=== PATIENT | female | born 2000 | race Caucasian/White ===

== ENCOUNTER → 2020-05-05 | Outpatient (CLI) | payer BC, OTHER ==
[~2020-05-05] VITALS: Ht 170.2 cm; Wt 81.8 kg
[~2020-05-05] MED LIST: GADOBUTROL 7.5 MMOL/7.5 ML (GADAVIST) VIAL IV ONE; IOHEXOL 300 MG/ML 50 ML (OMNIPAQUE 300) VIAL IV ONE
--- NOTE | 2020-05-05 14:54 | Diagnostic Imaging Report ---
INDICATION: Right shoulder pain. DETAILS OF PROCEDURE: Patient was brought to the procedure room and placed on table in the supine position. The skin of the right shoulder was prepped and draped in the usual sterile fashion. A small amount of 1% lidocaine was utilized for local anesthesia. 20-gauge needle was advanced to the right shoulder at rotator interval. 50 mL solution of iodinated contrast, normal saline and gadolinium was injected under fluoroscopic observation. Needle was withdrawn and hemostasis was obtained. Patient tolerated the procedure well and was sent to MRI in satisfactory condition. 16 seconds of fluoroscopic time was utilized. IMPRESSION: Successful right shoulder injection of gadolinium contrast solution, using fluoroscopy. Dictated by: Dictated on workstation # [id number]
--- NOTE | 2020-05-05 16:43 | Diagnostic Imaging Report ---
EXAMINATION: Magnetic resonance imaging of the right shoulder with intra-articular contrast. DATE: May 05, 2020. COMPARISON: Right shoulder arthrogram May 05, 2020. MRI right shoulder arthrogram January 27, 2016. HISTORY: 20-year-old female, evaluation for superior labral tear. Right shoulder pain. TECHNIQUE: Magnetic Resonance Imaging sequences were performed of the shoulder following the intra-articular administration of contrast. FINDINGS: ROTATOR CUFF, LIGAMENTS, TENDONS, AND MUSCLES: The supraspinatus, infraspinatus, teres minor, and subscapularis tendons and muscles are intact. There is normal rotator cuff muscle bulk and signal. LONG HEAD OF BICEPS: The biceps labral attachment and long head of the biceps tendon are intact. The long head of the biceps tendon is normally positioned within the bicipital groove. GLENOHUMERAL JOINT: The humeral head is well positioned relative to the glenoid. There is an anchor in the anterior superior glenoid, likely relating to prior labral repair. There is no identified contrast filled labral tear. There is no identified paralabral cyst. The articular cartilage is grossly intact. There is no intra-articular body or prominent synovitis. The anterior and posterior bands of the inferior glenohumeral ligament complex are intact. ACROMIOCLAVICULAR JOINT: The acromioclavicular joint is normally aligned. The coracoclavicular and coracoacromial ligaments are intact. There are no degenerative changes of the acromioclavicular joint. BONE: The bones all have normal configuration. The bone marrow signal is within normal limits. Specifically, negative for fracture, osteomyelitis, osteonecrosis, or marrow replacing process. BURSAE AND SOFT TISSUES: The bursae and soft tissue surrounding the shoulder are unremarkable. IMPRESSION: 1. [place] in the anterior superior glenoid, compatible with prior labral repair. There is no evidence of failure of the repair or otherwise identified labral tear. No paralabral cyst. 2. Additional glenohumeral joint assessment is unremarkable. 3. Intact rotator cuff and proximal long head of biceps tendon. 4. Intact acromioclavicular joint. 5. Unremarkable bone morphology. No acute fracture, bone contusion, or other bone marrow signal abnormality. Dictated by: Dictated on workstation # [id number]
== END ==
LOC: RAD 13:55
PROVIDERS: ATTEND Orthopaedic Surgery
DX: S43.431D Superior glenoid labrum lesion of right shoulder, subsequent encounter (principal); X58.XXXD Exposure to other specified factors, subsequent encounter
CPT/HCPCS: 23350; 73040; 73222